=== PATIENT | male | born 1985 | race Caucasian/White ===

== ENCOUNTER 2017-08-23 10:17 | Inpatient (IN) | payer SELFPAY ==
--- NOTE | 2017-08-23 10:50 | EDPHY ---
HPI/HX/ROS/PE/MDM Narrative: CHIEF COMPLAINT: M1 hold HPI: The patient is a 31-year-old male with a history of a nonspecified mental health disorder. He was brought to the emergency department by [place] [employer] on an M1 hold. Per the border police, the patient's became concerned about him as he left the tried several days ago and had apparently made statements regarding possibly wanting to hang himself or shoot himself. She contacted the police and destroyed who were able to locate his cellphone and were able to determine that he was on [facility]. There were further able to identify the patient's car and detained him just prior to arrival. The patient refuses to speak to the police or to myself. He is able to tell me that he is not in pain and denies any current complaints. REVIEW OF SYSTEMS: Unable to obtain. PMH: Unspecified psychiatric disorder. SOCIAL HISTORY: . Lives in a tried. PHYSICAL EXAM: General:Patient is alert, in no acute distress. ENT:Eyes are normal to inspection. ENT inspection normal. Neck: Normal inspection. Full range of motion. Respiratory:No respiratory distress. Breath sounds normal bilaterally. Cardiovascular: Regular rate and rhythm. Strong peripheral pulses. Normal cap refill. Skin: Normal color. No rash. Warm and dry. Extremities: Normal appearance. Full range of motion. Neuro: Normal motor function. Normal sensory function. Psychiatric: Patient is composed, does not want to participate and exam. ED Course: Evaluated by Mental Health. Will be admitted by Dr. Johnston to . They have been unable to contact the patient's for corroboration, but they are quite concerned that the patient is not telling the truth about his intentions and is indeed suicidal. They recommend admission to ensure safety of patient. - Data Points Laboratory Results: Laboratory Results 08/23/17 11:01 08/23/17 11:01 08/23/17 08/23/17 08/23/17 11:01 11:01 11:01 WBC 7.45 10^3/uL 10^3/uL (3.80-9.50) RBC 4.99 10^6/uL 10^6/uL (4.40-6.38) Hgb 14.3 g/dL g/dL (13.7-17.5) Hct 42.2 % % (40.0-51.0) MCV 84.6 fL fL (81.5-99.8) MCH 28.7 pg pg (27.9-34.1) MCHC 33.9 g/dL g/dL (32.4-36.7) RDW 13.5 % % (11.5-15.2) Plt Count 331 10^3/uL 10^3/uL (150-400) MPV 12.3 fL H fL (8.7-11.7) Neut % (Auto) 62.0 % % (39.3-74.2) Lymph % (Auto) 28.1 % % (15.0-45.0) Hidalgo % (Auto) 7.4 % % (4.5-13.0) Eos % (Auto) 0.8 % % (0.6-7.6) Baso % (Auto) 1.3 % % (0.3-1.7) Nucleat RBC Rel Count 0.0 % % (0.0-0.2) Absolute Neuts (auto) 4.62 10^3/uL 10^3/uL (1.70-6.50) Absolute Lymphs (auto) 2.09 10^3/uL 10^3/uL (1.00-3.00) Absolute Monos (auto) 0.55 10^3/uL 10^3/uL (0.30-0.80) Absolute Eos (auto) 0.06 10^3/uL 10^3/uL (0.03-0.40) Absolute Basos (auto) 0.10 10^3/uL 10^3/uL (0.02-0.10) Absolute Nucleated RBC 0.00 10^3/uL 10^3/uL (0-0.01) Immature Gran % 0.4 % % (0.0-1.1) Immature Gran # 0.03 10^3/uL 10^3/uL (0.00-0.10) Sodium 146 mEq/L H mEq/L (135-145) Potassium 4.5 mEq/L mEq/L (3.5-5.2) Chloride 103 mEq/L mEq/L (97-110) Carbon Dioxide 29 mEq/l mEq/l (22-31) Anion Gap 14 mEq/L mEq/L (8-16) BUN 9 mg/dL mg/dL (7-23) Creatinine 1.0 mg/dL mg/dL (0.7-1.3) Estimated GFR > 60 Glucose 100 mg/dL mg/dL (70-100) Calcium 8.8 mg/dL mg/dL (8.5-10.4) Urine Opiates Screen NEGATIVE (NEGATIVE) Urine Barbiturates NEGATIVE (NEGATIVE) Ur Phencyclidine Scrn NEGATIVE (NEGATIVE) Ur Amphetamine Screen NEGATIVE (NEGATIVE) U Benzodiazepines Scrn NEGATIVE (NEGATIVE) Urine Cocaine Screen NEGATIVE (NEGATIVE) U Marijuana (THC) Screen NON-NEGATIVE H (NEGATIVE) Ethyl Alcohol < 10 mg/dL mg/dL (0-10) General Time Seen by Provider: 08/23/17 10:21 Initial Vital Signs: Initial Vital Signs Temperature (C) 36.2 C 08/23/17 10:27 Heart Rate 82 08/23/17 10:27 Respiratory Rate 16 08/23/17 10:27 Blood Pressure 126/73 H 08/23/17 10:27 O2 Sat (%) 95 08/23/17 10:27 O2 Delivery Mode Room Air Allergies/Adverse Reactions: No Known Allergies Allergy (Unverified 08/23/17 10:27) Home Medications: Medication Instructions Recorded NK [No Known Home Meds] 08/23/17 Departure - Departure Disposition: [facility] IP Clinical Impression: Suicidal ideation Condition: Fair
[2017-08-23 11:12] LABS: PLATELET COUNT 331 10^3/uL (150-400)
[2017-08-23] MEDS ORDERED: OLANZapine DISINTEGR 10 MG TAB PO PRN (16:04)
[2017-08-23] MEDS ORDERED: LORazepam 0.5 MG TAB PO PRN (16:04)
[2017-08-23] MEDS ORDERED: NICOTINE POLACRILEX 2 MG GUM B PRN (16:04)
[2017-08-23] MEDS ORDERED: ACETAMINOPHEN 325 MG TAB PO PRN (16:04)
[2017-08-23] MEDS ORDERED: MAG HYDROX/AL HYDROX/SIMETH 30 ML UDCUP PO PRN (16:04)
[2017-08-23] MEDS ORDERED: MAGNESIUM HYDROXIDE 30 ML UDCUP PO PRN (16:04)
[2017-08-24] MEDS ORDERED: hydrOXYzine HCL 25 MG TAB PO PRN (08:35)
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
--- NOTE | 2017-08-24 18:43 | BCON ---
[f rep st] BEHAVIORAL HEALTH CONSULTATION INTERNAL MEDICINE CONSULTATION. DATE OF CONSULTATION: 08/24/2017 REFERRING PHYSICIAN: Elroy Johnston MD REASON FOR REFERRAL: Medical clearance for inpatient behavioral health stay. HISTORY OF PRESENT ILLNESS: This patient was brought in to the emergency department by police. He had apparently impulsively driven from [place] to [place] and had texted his . His called the police in [place] when she received texts from him in which he was threatening to commit suicide, though he denied sending such texts. He was evaluated by the mental health team and admitted for further psychiatric care. He is currently without any medical complaints. PAST MEDICAL HISTORY: Unspecified mental health disorder with depression. PAST SURGICAL HISTORY: He had a history of eye surgery as a child which he understands was to tighten up tendons. MEDICATIONS: He was on no medications prior to admission. ALLERGIES: There are no known drug allergies. SOCIAL HISTORY: He is . He lives with his . He has 2 children. 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 He is a nonsmoker. He has occasional alcohol binging , and he had THC in his urine on the urine drug test. FAMILY HISTORY: Noncontributory. REVIEW OF SYSTEMS: A 10-point review of systems was conducted and was negative. PHYSICAL EXAM: VITAL SIGNS: Blood pressure is 108/68, heart rate is 80, respiratory rate is 14, oxygen saturation is 94% on room air. Temperature is 36.5 degrees centigrade. His weight is 68.9 kg for a body mass index of 23.8. GENERAL: This is a well-nourished, well-developed man, appears his chronologic age, cooperative and in no acute distress. HEENT: Extraocular movements are intact. Pupils are equal, round, react to light. Mucous membranes are moist. Dentition is in good condition. NECK: Supple. HEART: There is regular rate and rhythm with no murmurs, rubs, or gallops. LUNGS: Clear to auscultation bilaterally. ABDOMEN: Benign. EXTREMITIES: There is no cyanosis, clubbing, or edema. NEUROLOGIC: He is alert and oriented x3. Cranial nerves 2-12 are grossly intact. There is no focal weakness. Sensation is intact to light touch. LABORATORY STUDIES: Drawn in the emergency department: CBC was overall within normal limits. He had a slightly elevated mean platelet volume of no clinical significance. Serum chemistry revealed a slightly elevated sodium at 146. Otherwise renal function and electrolytes were within normal limits. Liver functions were within normal limits. He had a low cholesterol at 133, and a low LDL at 68. His HDL was slightly low at 37. Toxicology screen in the serum was negative for ethyl alcohol, and in the urine was non-negative for marijuana , but otherwise negative for substances of abuse. ASSESSMENT/RECOMMENDATIONS: 1. Mental health issues pending further evaluation and management per Psychiatry and the mental health team. 2. Hypernatremia. This is very mild. It might result from potentially a recent alcohol binge, though he is not currently showing any signs or symptoms of withdrawal. Alternately in his travels, he may just have been not getting enough water. As it is a very mild alteration, would simply observe for normal oral fluid intake and any signs or symptoms of dehydration. There is no further evaluation indicated at this time. I see no medical contraindications to this patient's continued stay on the inpatient behavioral health unit or to any psychiatric medications or procedures. Thank you very much for including me in the care of this patient, and please do not hesitate to contact me or the hospitalist service should there be need for further medical evaluation. /[id number]/MODL MTDD
[2017-08-24] MEDS: OLANZapine 5 MG TAB PO SCH (21:04)
[2017-08-24] MEDS: FLUoxetine 10 MG CAP PO SCH (21:04)
[2017-08-25] MEDS: THIAMINE HCL 100 MG TAB PO SCH (08:15)
--- NOTE | 2017-08-25 13:07 | SOAPPROG ---
SOAP Progress Note Assessment/Plan: Assessment: 31 yo man with h/o alcohol dependence and cannabis use disorder who drove from [place] and called his expressing SI while intoxicated. Plan: 08/25/17 13:04 1. Patient wants to leave "as soon as possible," however, does not have a follow up plan in place. His would like to come to [place] in order to drive home with patient. His care is "somewhere" in [place], he isn't sure where. 2. Tolerating new medication, Symbyax, without any SE's. 3. Patient considering whether or not to start Naltrexone before he returns to [place]. 4. Would like to see counselor at [facility] in [place] when he returns. 5. Recommend d/c on Sunday after CC can try to contact outpatient providers in [place] and can get plane ticket to fly to [place] and pick patient up at time of d/ c. 6. Sign in voluntary. Subjective: Met with patient, reviewed chart and d/w staff. Patient presents calm, pleasant. He denies any w/d sxs, VSS, denies feeling depressed, sad or anxious. His lipid panel indicated low cholesterol, low LDL and slightly low HDL. HgbA1c was WNL. He denies any thoughts, plan or intent to hurt himself or anyone else. CC spoke to by phone. She would like to fly to [place] tomorrow and pick patient up on Sunday to go and look for car together and drive back to [place]. Patient agrees with this plan. Objective: Vital Signs Temp Pulse Resp BP Pulse Ox 36.3 C 66 20 105/80 98 08/25/17 06:47 08/25/17 06:47 08/25/17 06:47 08/25/17 06:47 08/25/17 06:47 MSE: Affect: Euthymic Mood: "Good" TP: Linear TC: Denies any AH/VH, no SI/HI Insight/Judgment: Fair - Time Spent With Patient Time Spent With Patient: 20" - Pending Discharge Pending Discharge Within 24 Hours: No Pending Discharge Within 48 Hours: No ICD10 Worksheet Patient Problems: Problems Problem Status Onset Alcohol abuse Acute Bipolar 2 disorder Acute Cannabis abuse Acute Suicidal ideation Acute
[2017-08-25] MEDS: OLANZapine 5 MG TAB PO SCH (20:00)
[2017-08-25] MEDS: FLUoxetine 10 MG CAP PO SCH (20:00)
[2017-08-26 06:34] VITALS: O2SAT 95
[2017-08-26] MEDS: THIAMINE HCL 100 MG TAB PO SCH (08:13)
--- NOTE | 2017-08-26 12:59 | SOAPPROG ---
SOAP Progress Note Assessment/Plan: Assessment: 31 yo man with h/o alcohol dependence and cannabis use disorder who drove from [place] and called his expressing SI while intoxicated. Plan: 08/25/17 13:04 1. Patient wants to leave "as soon as possible," however, does not have a follow up plan in place. His would like to come to [place] in order to drive home with patient. His care is "somewhere" in [place], he isn't sure where. 2. Tolerating new medication, Symbyax, without any SE's. 3. Patient considering whether or not to start Naltrexone before he returns to [place]. 4. Would like to see counselor at [facility] in [place] when he returns. 5. Recommend d/c on Sunday after CC can try to contact outpatient providers in [place] and can get plane ticket to fly to [place] and pick patient up at time of d/ c. 6. Sign in voluntary. 08/26/17 12:56 1. CC, Melissa, spoke to by phone yesterday. She has a plane ticket to arrive in [place] tomorrow afternoon and will drive directly to hospital to pick patient up. They plan to drive back to [place] together. 2. MD reviewed r/b/se's of Naltrexone and answered patient's questions after he read the drug information handout Dr. Aparicio provided him. He has given informed consent to start Naltrexone today. 3. Patient will d/c tomorrow once arrives. Subjective: Met with patient, reviewed chart and d/w staff. Patient denies feeling sad, depressed or anxious. He denies any thoughts, plan or intent to harm himself or anyone else. MD answers patient's questions about naltrexone and patient states he would like to start taking naltrexone today. Objective: Vital Signs Temp Pulse Resp BP Pulse Ox 36.4 C 58 L 16 124/79 H 95 08/26/17 06:33 08/26/17 06:33 08/26/17 06:33 08/26/17 06:33 08/26/17 06:33 MSE: Affect: Euthymic Mood: "Good" TP: linear TC: Denies any SI/HI, no AH/VH Insight/Judgment: Fair - Time Spent With Patient Time Spent With Patient: 20" - Pending Discharge Pending Discharge Within 24 Hours: Yes Pending Discharge Within 48 Hours: No Pending Discharge Date: 08/27/17 (Likely to d/c on Sunday when arrives) Pending Discharge Time: 11:00 ICD10 Worksheet Patient Problems: Problems Problem Status Onset Alcohol abuse Acute Bipolar 2 disorder Acute Cannabis abuse Acute Suicidal ideation Acute
[2017-08-26] MEDS: NALTREXONE HCL 50 MG TAB PO SCH (13:55)
[2017-08-26] MEDS: FLUoxetine 10 MG CAP PO SCH (20:46)
[2017-08-26] MEDS: OLANZapine 5 MG TAB PO SCH (20:46)
[2017-08-27 06:36] VITALS: BP 105/57; PULSE 80; RESP 20; TEMP 97.7
[2017-08-27] MEDS: THIAMINE HCL 100 MG TAB PO SCH (08:22)
[2017-08-27] MEDS: NALTREXONE HCL 50 MG TAB PO SCH (08:22)
--- NOTE | 2017-08-27 12:27 | BDS ---
[f rep st] BEHAVIORAL HEALTH DISCHARGE SUMMARY IDENTIFICATION: This is a 31-year-old, white male, who lives with his and 2 daughters in [place]. 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 He has no prior history of psychiatric medications or psychiatric hospitalizations. REASON FOR ADMISSION: Please see initial psychiatric evaluation from August 24, 2017. The patient apparently had relapsed on alcohol, was binge drinking, impulsively traveled from [place] to [place] on the weekend of August 18. The patient apparently was drinking and smoking cannabis here in [place]. He apparently, while intoxicated on August 22, spoke to his sister-in- law and a friend back in [place], and reported he was suicidal, wanted to hang himself or shoot himself. The patient was then called by his from [place]. She later called the police and had him brought to the emergency room. In the emergency room, the patient denied suicidal ideation, but was admitted on an M1 hold, due to concerns he was a danger to himself. HOSPITAL COURSE: The patient was initially admitted to the inpatient unit on M1 hold. He later agreed to stay in the hospital on a voluntary basis. The patient reported no history of suicide attempts. No access to a gun and no prior psychiatric medication trials or psychiatric hospitalizations. He did, however, report a history of binge drinking on alcohol. He had been sober for several months, but had a relapse that led to him impulsively traveling to [place] and was drinking alcohol and smoking cannabis here in [place]. He reported a similar episode several months ago, where he relapsed on alcohol and ended up in [place] and [place]. The patient reported a history of major depressive disorder symptoms including low mood, low energy, anhedonia, feeling hopeless, and overwhelmed. He adamantly denied feeling suicidal. He denied any history of psychosis. He did report a history of irritability agitation, decreased sleep, racing thoughts, and brief impulsivity in the past, concerning for hypomanic episodes. He did report his sister had bipolar disorder and his parents had a history of erratic behavior and alcoholism. The patient was agreeable to start Symbyax, which is a combination of olanzapine and fluoxetine , for bipolar depression versus major depressive disorder. He was started on olanzapine 5 mg at night and fluoxetine 10 mg at night. The patient tolerated these medications without side effects. He was counseled about the risks of fluoxetine causing agitation, impulsivity, suicidal ideation, and bipolar disorder symptoms, as well as having drug interactions and increased risk of bleeding. He was given a handout from the [employer] on fluoxetine. He was counseled about the risks of olanzapine causing tardive dyskinesia and metabolic syndrome and sedation, and was given a handout from the [employer] on this medication. The patient admitted to a history of recurrent alcohol use as a young adult and then episodic binge drinking a large amount leading to relationship and work problems consistent with an alcohol use disorder. He was given a handout on naltrexone, outlining the risks of hepatitis nausea and blockade of opiate medications. He was started on naltrexone 50 mg daily. The patient's was contacted and she agreed to fly out to [place] to drive back to [place] with him and to monitor his medication compliance and assist him in getting followup treatment. On the unit, the patient initially appeared dysphoric, anxious, and sad. He had a marked improvement in affect. Had better eye contact, appeared less distressed. He reported a significant subjective improvement in mood. He was eating well, sleeping well, and able to attend groups. Prior to discharge, the patient was able to complete a safety plan outlining his strengths, coping skills, and supports. Prior to discharge his was able to travel out to [place] to help him fill his prescriptions, monitor his medication compliance, and assist him in getting follow up mental health treatment in [place]. CONDITION ON DISCHARGE: He is an alert, thin white male, in no acute distress. He is ambulatory without tremors. He is somewhat thin. His speech is regular rate and rhythm. His mood is "better, not as stressed out." His affect is briefly reactive. His thoughts are organized. He denies any plans to hurt himself or others. He denies any access to a gun. He denies auditory hallucinations or paranoia. His memory is good. His insight is appropriate. His judgment is appropriate as well. DISCHARGE DIAGNOSES: 1. Bipolar disorder, type 2, most recent episode depressed. 2. Alcohol use disorder, severe. 3. Cannabis use disorder, mild. 4. History of eye surgery. 5. Rule out alcohol-induced mood disorder. 6. Also, suicidal ideation on August 22, during alcohol intoxication. DISCHARGE MEDICATIONS: Fluoxetine 10 mg p.o. q.h.s., olanzapine 5 mg p.o. q.h.s., naltrexone 50 mg p.o. q.a.m. Prescriptions are for 1 month in a bubble pack. The patient was printed off coupons from [employer], to pay out of pocket. The patient reports he has Medicaid in [place], but does not have his insurance information with him. DISPOSITION: The patient is leaving the unit with his . They will locate his car and drive back to [place]. FOLLOWUP: The patient was counseled to see a primary care doctor within 1 month to recheck his glucose and lipid panel and to refer him to a mental health provider in his area that accepts Medicaid. The care coordinators identified Outpatient Mental Health Clinics in his area, several of which are private pay only, some of which accept Medicaid but have a long waiting list. A list of these providers was given to the patient and his on discharge. OTHER INSTRUCTIONS: The patient was counseled to eat a low sugar diet and to exercise and to have his primary care provider recheck his glucose and lipid panel in 1 month. An outpatient provider will need to recheck his liver function tests prior to refilling his Naltrexone. A copy of his lab results were given to the patient. LEGAL STATUS: The patient was admitted on an M1 hold and then agreed to treatment on a voluntary basis. CONSULTATIONS: The patient had a baseline physical exam by Dr. Lovett, on August 24. PROCEDURES: None. LABS PENDING: None. LAB RESULTS: White blood cell count 7.4, hemoglobin 14.3, platelet count 331. Sodium 146, potassium 4.5, creatinine 1.0, glucose 100, hemoglobin A1c 5.5, calcium 8.8, AST 22, ALT 29. Triglycerides 141, LDL 68, HDL 37, TSH 0.7. Urine tox screen was positive for cannabis. SUBSTANCE ABUSE SCREENING: The patient screened positive for alcohol and cannabis use disorders. He was warned about the risks of cannabis causing anxiety, panic attacks, and psychosis. He was warned about the risk of alcohol causing depression, impulsive behavior, and increasing the risk of suicide. The patient was agreeable to start naltrexone for alcohol cravings and was referred to mental health and substance abuse treatment providers in his home area in [place]. ADVANCED DIRECTIVES: The patient does not have an advance directive. His is his next-of-kin. NICOTINE USE DISORDER SCREENING: Patient denies smoking cigarettes. METABOLIC SCREENING: Patient had a baseline hemoglobin A1c and lipid panel that were normal. /[id number]/MODL MTDD
== END 2017-08-27 12:20 | disposition home or self-care (01) | DRG 885 ==
LOC: BBEH 15:25
PROVIDERS: ADMIT Psychiatry & Neurology Psychiatry
DX: F31.9 Bipolar disorder, unspecified (principal); F10.24 Alcohol dependence with alcohol-induced mood disorder; F12.90 Cannabis use, unspecified, uncomplicated; E87.0 Hyperosmolality and hypernatremia; R45.851 Suicidal ideations; Z81.1 Family history of alcohol abuse and dependence; Z81.8 Family history of other mental and behavioral disorders
CPT/HCPCS: 80305; G0480